=== PATIENT | female | born 1980 | race Two or more races ===

== ENCOUNTER 2018-08-23 09:35 | Emergency (ER) | payer MEDICAID ==
[2018-08-23] MEDS: HYDROCODONE/APAP (5/325) TAB PO (10:19)
[2018-08-23] MEDS: ENOXAPARIN 40 MG/0.4 ML SYG SC (11:33)
== END 2018-08-23 12:17 | disposition home or self-care (01) ==
LOC: FTE 09:35
DX: I82.402 Acute embolism and thrombosis of unspecified deep veins of left lower extremity (principal)
CPT/HCPCS: 81025; 93971; 96372; 99285-25

== ENCOUNTER 2018-08-25 00:18 | Emergency (ER) | payer MEDICAID ==
[2018-08-25] MEDS: CEFEPIME 2GM/50 ML (PMX) 50 ML IVPB (01:00)
[2018-08-25] MEDS: SODIUM CHLORIDE 0.9% 1L BAG IV* (01:00)
[2018-08-25] MEDS: ACETAMINOPHEN 325 MG TAB PO (01:08)
[2018-08-25 01:10] LABS: ADD MAN DIFF? NO
[2018-08-25 01:12] LABS: BASOPHIL # 0.1 10^3/ul (0.0-0.1); BASOPHILS % 0.3 % (0.0-2.0); EOSINOPHILS # 0.2 10^3/ul (0.0-0.5); EOSINOPHILS % 0.9 % (0.0-7.0); HEMATOCRIT 39.7 % (37.0-47.0); HEMOGLOBIN 13.8 g/dl (12.0-16.0); LYMPHOCYTES # 2.4 10^3/ul (0.8-2.9); LYMPHOCYTES % 13.7 % (15.0-51.0); MEAN CORPUSCULAR HEMOGLOBIN 29.2 pg (29.0-33.0); MEAN CORPUSCULAR HGB CONC 34.8 g/dl (32.0-37.0); MEAN CORPUSCULAR VOLUME 84.1 fl (82.0-101.0); MEAN PLATELET VOLUME 10.1 fl (7.4-10.4); MONOCYTES % 5.8 % (0.0-11.0); NEUTROPHIL # 13.9 10^3/ul (1.6-7.5); NEUTROPHILS % 78.8 % (39.0-77.0); PLATELET COUNT 298 10^3/UL (140-415); RED BLOOD COUNT 4.72 10^6/ul (4.20-5.40); RED CELL DISTRIBUTION WIDTH 12.1 % (11.5-14.5)
[2018-08-25 01:12] LABS: WHITE BLOOD COUNT 17.6 10^3/ul (4.8-10.8)
[2018-08-25 01:17] LABS: ADD UMIC NO; UR ASCORBIC ACID NEGATIVE (NEGATIVE); UR BILIRUBIN (Dip) NEGATIVE (NEGATIVE); UR BLOOD (Dip) NEGATIVE (NEGATIVE); UR CLARITY CLEAR (CLEAR); UR COLOR YELLOW (YELLOW); UR GLUCOSE (Dip) NEGATIVE (NEGATIVE); UR KETONES (Dip) NEGATIVE (NEGATIVE); UR LEUKOCYTE ESTERASE (Dip) NEGATIVE Leu/ul (NEGATIVE); UR NITRITE (Dip) NEGATIVE (NEGATIVE); UR SPECIFIC GRAVITY (Dip) 1.008 (1.003-1.030); UR TOTAL PROTEIN (Dip) NEGATIVE (NEGATIVE); UR UROBILINOGEN (Dip) NEGATIVE (NEGATIVE)
[2018-08-25 01:31] LABS: INR 0.93; PROTIME 12.6 Sec (11.9-14.9)
[2018-08-25 01:32] LABS: PARTIAL THROMBOPLASTIN TIME 30.9 Sec (23.0-35.0)
[2018-08-25 01:37] LABS: ALANINE AMINOTRANSFERASE 9 IU/L (13-69); ALBUMIN 4.6 g/dl (3.3-4.9); ALBUMIN/GLOBULIN RATIO 0.97; ALKALINE PHOSPHATASE 90 IU/L (42-121); ANION GAP 12 (5-13); ASPARTATE AMINO TRANSFERASE 28 IU/L (15-46); BILIRUBIN,INDIRECT 0.3 mg/dl (0-1.1); BILIRUBIN,TOTAL 0.3 mg/dl (0.2-1.3); BLOOD UREA NITROGEN 7 mg/dl (7-20); CALCIUM 9.5 mg/dl (8.4-10.2); CARBON DIOXIDE 27 mmol/L (21-31); CHLORIDE 98 mmol/L (97-110); CREATININE 0.64 mg/dl (0.44-1.00); Estimated GFR > 60 mL/min (>60); GLUCOSE 148 mg/dl (70-220); POTASSIUM 3.2 mmol/L (3.5-5.1); SODIUM 137 mmol/L (135-144); TOTAL PROTEIN 9.3 g/dl (6.1-8.1)
[2018-08-25 01:49] LABS: TROPONIN-I < 0.012 ng/ml (0.000-0.120)
[2018-08-25] MEDS: VANCOMYCIN 1 GM (PMX) 250 ML IVPB (02:20)
[2018-08-25] MEDS: IOHEXOL 300MG/ML 150 ML BTL ×2 (03:31→08:34)
[2018-08-25] MEDS: SOD CHLORIDE 0.9% 100 ML ×2 (03:31→08:33)
[2018-08-25 04:18] LABS: LACTIC ACID 1.6 mmol/L (0.5-2.0)
[2018-08-25] MEDS ORDERED: ACETAMINOPHEN 325 MG TAB PO ×2 (04:30)
[2018-08-25] MEDS ORDERED: NACL 0.9% 3 ML SYG IV (04:30)
[2018-08-25] MEDS ORDERED: ONDANSETRON 4 MG INJ IV ×2 (04:30)
[2018-08-25] MEDS ORDERED: DOCUSATE SODIUM 100 MG CAP PO (04:30)
[2018-08-25] MEDS ORDERED: BISACODYL (EC) 5 MG TAB PO (04:30)
[2018-08-25] MEDS ORDERED: DIPHENHYDRAMINE 50 MG INJ (04:34)
[2018-08-25] MEDS: DIPHENHYDRAMINE 50 MG INJ IV (04:37)
[2018-08-25] MEDS: ENOXAPARIN 60 MG/0.6 ML SYG SC ×2 (04:47→08:45)
[2018-08-25] MEDS ORDERED: VANCOMYCIN IV PER PHARMACY XX (05:00)
[2018-08-25 06:29] LABS: LACTIC ACID 1.6 mmol/L (0.5-2.0)
[2018-08-25] MEDS: POTASSIUM CHLORIDE (SR) 20 MEQ TAB PO (07:42)
[2018-08-25] MEDS: PIPER-TAZO 3.375 GM IV (PMX) 100 ML IVPB (07:43)
[2018-08-25 09:44] LABS: MODE ROOM AIR; MetHgb Venous 0.3 %; Sample Type Blood venous; Site VENOUS LINE; Venous COHb 0.4 %; Venous Fraction OxyHgb 78.6 %; Venous Oxygen Sat 79.2 mmHG (55.0-75.0); Venous Total Hemglobin 14.2 g/dl
[2018-08-25] MEDS ORDERED: VANCOMYCIN 750 MG (PMX) 250 ML IVPB (14:30)
[2018-08-25] MEDS: HYDROCODONE/APAP (5/325) TAB PO (17:14)
== END 2018-08-25 17:23 | disposition home or self-care (01) ==
LOC: E/R 00:18
DX: I26.99 Other pulmonary embolism without acute cor pulmonale (principal)
CPT/HCPCS: 36415; 71045; 71275; 74177; 80053; 81003; 81025; 82803; 83605; 84484; 85025; 85610; 85730; 87040-91; 87086; 93005; 93306; 96365; 96372; 96375; 99285-25

== ENCOUNTER 2018-09-16 10:24 | Emergency (ER) | payer MEDICAID ==
[2018-09-16] MEDS: SOD CHLORIDE 0.9% 1,000 ML IV (13:03)
[2018-09-16] MEDS: KETOROLAC 15 MG INJ IV (13:03)
[2018-09-16 13:05] LABS: ADD MAN DIFF? NO
[2018-09-16 13:07] LABS: WHITE BLOOD COUNT 11.6 10^3/ul (4.8-10.8)
[2018-09-16 13:07] LABS: BASOPHILS % 0.3 % (0.0-2.0); EOSINOPHILS # 0.3 10^3/ul (0.0-0.5); EOSINOPHILS % 2.8 % (0.0-7.0); HEMATOCRIT 42.9 % (37.0-47.0); HEMOGLOBIN 14.5 g/dl (12.0-16.0); LYMPHOCYTES % 25.8 % (15.0-51.0); MEAN CORPUSCULAR HEMOGLOBIN 28.5 pg (29.0-33.0); MEAN CORPUSCULAR HGB CONC 33.8 g/dl (32.0-37.0); MEAN CORPUSCULAR VOLUME 84.3 fl (82.0-101.0); MEAN PLATELET VOLUME 10.1 fl (7.4-10.4); MONOCYTE # 0.7 10^3/ul (0.3-0.9); MONOCYTES % 6.4 % (0.0-11.0); NEUTROPHIL # 7.5 10^3/ul (1.6-7.5); NEUTROPHILS % 64.4 % (39.0-77.0); PLATELET COUNT 318 10^3/UL (140-415); RED BLOOD COUNT 5.09 10^6/ul (4.20-5.40); RED CELL DISTRIBUTION WIDTH 12.4 % (11.5-14.5)
[2018-09-16 13:27] LABS: INR 0.91; PROTIME 12.4 Sec (11.9-14.9)
[2018-09-16 13:28] LABS: PARTIAL THROMBOPLASTIN TIME 31.5 Sec (23.0-35.0)
[2018-09-16 13:36] LABS: ALANINE AMINOTRANSFERASE 27 IU/L (13-69); ALBUMIN 4.7 g/dl (3.3-4.9); ALKALINE PHOSPHATASE 82 IU/L (42-121); ANION GAP 13 (5-13); ASPARTATE AMINO TRANSFERASE 31 IU/L (15-46); BILIRUBIN,INDIRECT 0.3 mg/dl (0-1.1); BILIRUBIN,TOTAL 0.3 mg/dl (0.2-1.3); BLOOD UREA NITROGEN 6 mg/dl (7-20); CALCIUM 9.8 mg/dl (8.4-10.2); CARBON DIOXIDE 22 mmol/L (21-31); CHLORIDE 106 mmol/L (97-110); CREATININE 0.54 mg/dl (0.44-1.00); Estimated GFR > 60 mL/min (>60); GLUCOSE 102 mg/dl (70-220); LIPASE 81 U/L (23-300); POTASSIUM 4.3 mmol/L (3.5-5.1); SODIUM 141 mmol/L (135-144); TOTAL PROTEIN 8.3 g/dl (6.1-8.1)
[2018-09-16 13:47] LABS: TROPONIN-I < 0.012 ng/ml (0.000-0.120)
[2018-09-16] MEDS: SOD CHLORIDE 0.9% 100 ML (14:31)
[2018-09-16] MEDS: IOHEXOL 100 ML (14:32)
== END 2018-09-16 15:54 | disposition home or self-care (01) ==
LOC: E/R 10:24
DX: I27.82 Chronic pulmonary embolism (principal); I26.09 Other pulmonary embolism with acute cor pulmonale
CPT/HCPCS: 36415; 71275; 80053; 83690; 84484; 84703; 85025; 85610; 85730; 93005; 99285-25